=== PATIENT | female | born 1965 | race Caucasian/White ===

== ENCOUNTER 2020-02-14 14:00 | Outpatient (CLI) | payer OTHER, SELFPAY ==
--- NOTE | 2020-02-14 14:06 | MM_ITS ---
WS: [id number] BILATERAL DIGITAL SCREENING MAMMOGRAPHY WITH CAD CLINICAL INFORMATION: SCREENING HISTORY: Screening mammogram. No current complaints. COMPARISON: October 24, 2015 TECHNIQUE: Bilateral CC and MLO views. FINDINGS: The breasts are composed of heterogeneous fibroglandular density tissue, which can limit the detectio n of small underlying mass lesions. No suspicious mass, asymmetry, calcifications, or architectural d istortion. No evidence of malignancy. Punctate calcification left breast. MM/[place] [id number] IMPRESSION: BI-RADS: 2-Benign FOLLOW UP: 1 Year Follow-up Recommend return to annual screening mammography.
== END 2020-02-14 14:01 | disposition home or self-care (01) ==
LOC: RADSHAW 14:04
PROVIDERS: PCP Family Medicine; Visit Provider Family Medicine
DX: Z12.31 Encounter for screening mammogram for malignant neoplasm of breast (principal)
CPT/HCPCS: 77067

== ENCOUNTER 2020-02-23 08:02 | Outpatient (CLI) | payer OTHER, SELFPAY ==
--- NOTE | 2020-02-23 | XR_ITS ---
NOTE: Report was unsigned for reason: Order was edited. Original Signature date and time was: 02/23/20 0847 WS: [id number] HIP WITH PELVIS LEFT TECHNIQUE: 3 views of the left hip with pelvis CLINICAL INFORMATION: PAIN IN LEFT HIP COMPARISON: None. FINDINGS: Mild degenerative arthritis left hip. No acute fractures. HIP WITH PELVIS RIGHT TECHNIQUE: 3 views of the right hip with pelvis CLINICAL INFORMATION: PAIN IN RIGHT HIP COMPARISON: None. FINDINGS: Mild degenerative arthritis right hip. No acute fractures. Pelvic phleboliths. XR/XR hip RT 2-3V wo/w pel* [id number] IMPRESSION: No acute fractures. Mild degenerative arthritis. [facility] BI 3-4V wo/[place] [id number] IMPRESSION: No acute fractures
--- NOTE | 2020-02-23 | XR_ITS ---
WS: [id number] HIP WITH PELVIS RIGHT TECHNIQUE: 3 views of the right hip with pelvis CLINICAL INFORMATION: PAIN IN RIGHT HIP COMPARISON: None. FINDINGS: Mild degenerative arthritis right hip. No acute fractures. Pelvic phleboliths.
== END 2020-02-23 08:03 | disposition home or self-care (01) ==
LOC: RADWPI 08:04
PROVIDERS: Family Provider Family Medicine; PCP Family Medicine; Visit Provider Family Medicine
DX: M25.552 Pain in left hip (principal); M16.11 Unilateral primary osteoarthritis, right hip
CPT/HCPCS: 73502; 73522

== ENCOUNTER 2020-03-29 13:06 | Outpatient (CLI) | payer OTHER, SELFPAY ==
--- NOTE | 2020-03-29 13:00 | XR_ITS ---
WS: [id number] AP standing pelvis, standing right and left hips, AP and frog leg, 03/29/2020 Clinical Data: hip pain Comparison: Bilateral hips, 02/23/2020. Findings: Right hip: There is a prominent acetabular lip. Mild narrowing of the hip joint is seen. There is no erosion or sclerosis. There are no fractures or dislocations. Left hip: There is a prominent acetabular lip. There is minimal narrowing. There are no fractures or dislocatio ns. No erosion or sclerosis seen. AP pelvis: The SI joints and pubic symphysis are normal. There is minimal degenerative change of both hips. Ther e are no fractures or dislocations. The soft tissues are normal. XR/XR hip BI m 5V wo/w pel* [id number] Impression: 1. Mild osteoarthritic change of both hips. 2. Negative pelvis.
== END 2020-03-29 13:07 | disposition home or self-care (01) ==
LOC: RADWPI 13:09
PROVIDERS: Family Provider Family Medicine; PCP Family Medicine; Visit Provider Specialist
DX: M25.551 Pain in right hip (principal); M25.552 Pain in left hip
CPT/HCPCS: 73522; 73523

== ENCOUNTER → 2020-04-05 09:19 | Outpatient (BNVA) | payer OTHER, SELFPAY | PROVIDERS: Family Provider Family Medicine; PCP Family Medicine; Referring Provider Specialist; Visit Provider Anesthesiology Pain Medicine | DX: M25.551 Pain in right hip (principal); M47.816 Spondylosis without myelopathy or radiculopathy, lumbar region; M54.16 Radiculopathy, lumbar region; Z79.891 Long term (current) use of opiate analgesic | CPT/HCPCS: 99205 ==

== ENCOUNTER 2022-11-06 11:39 | Outpatient (CLI) | payer MEDICARE, SELFPAY ==
--- NOTE | 2022-11-06 11:48 | MM_ITS ---
WS: [id number] BILATERAL SCREENING DIGITAL TOMOSYNTHESIS MAMMOGRAM WITH CAD HISTORY: SCREENING COMPARISON: 02/14/2020, 10/24/2015 Bilateral CC and MLO views with tomosynthesis and synthetic mammography submitted. Computer aided det ection analyzed. Breast composition: There are scattered areas of fibroglandular density. No suspicious masses, microc alcifications or architectural distortion. MM/[place] [id number] IMPRESSION: BI-RADS: 1-Negative FOLLOW UP: 1 Year Follow-up
== END 2022-11-06 11:40 | disposition home or self-care (01) ==
LOC: RAD 11:41
PROVIDERS: Family Provider Family Medicine; PCP Family Medicine; Visit Provider Family Medicine
DX: Z12.31 Encounter for screening mammogram for malignant neoplasm of breast (principal)
CPT/HCPCS: 77063; 77067

== ENCOUNTER → 2023-03-06 08:33 | Outpatient (BNVA) | payer MEDICARE, SELFPAY | PROVIDERS: Family Provider Family Medicine; PCP Family Medicine; Visit Provider Internal Medicine Cardiovascular Disease | DX: R00.0 Tachycardia, unspecified (principal); I49.1 Atrial premature depolarization; I49.3 Ventricular premature depolarization | CPT/HCPCS: 93246 ==

== ENCOUNTER → 2024-02-27 09:44 | Outpatient (BNVA) | payer MEDICARE, SELFPAY | PROVIDERS: Family Provider Family Medicine; PCP Family Medicine; Visit Provider Nurse Practitioner | DX: J02.9 Acute pharyngitis, unspecified (principal) | CPT/HCPCS: 87880 ==

== ENCOUNTER → 2024-05-14 08:21 | Outpatient (BNVA) | payer MEDICARE, SELFPAY | PROVIDERS: Family Provider Family Medicine; PCP Family Medicine; Referring Provider Family Medicine; Visit Provider Student in an Organized Health Care Education/Training Program | DX: Z12.11 Encounter for screening for malignant neoplasm of colon (principal) | CPT/HCPCS: 99024; 99204 ==

== ENCOUNTER 2024-05-19 09:20 | Outpatient (CLI) | payer MEDICARE, SELFPAY ==
--- NOTE | 2024-05-19 09:21 | MM_ITS ---
WS: [id number] SCREENING DIGITAL BREAST TOMOSYNTHESIS MAMMOGRAM WITH CAD HISTORY: SCREENING COMPARISON: 11/06/2022, 02/14/2020 Bilateral CC and MLO with tomosynthesis and synthetic mammography submitted. Computer aided detection analyzed. Breast composition: There are scattered areas of fibroglandular density. There is a well-circumscribe d high density round mass in the posterior medial LEFT breast just below the nipple line. Mass is pro bably at the 8-9 o'clock axis close to the nipple. Mass measures 4 x 2 x 5 mm. No additional abnormal ities or distortion. MM/MM [facility] BI tomosynthesis [id number] IMPRESSION: BI-RADS: 0 - Incomplete: Need additional imaging evaluation. FOLLOW UP: Need Additional Imaging Recommendation: LEFT breast ultrasound, limited. LEFT breast just medial to the nipple near 8-9 o'clock.
== END 2024-05-19 09:21 | disposition home or self-care (01) ==
LOC: RAD 09:21
PROVIDERS: Family Provider Family Medicine; PCP Family Medicine; Visit Provider Family Medicine
DX: Z12.31 Encounter for screening mammogram for malignant neoplasm of breast (principal); R92.323 Mammographic fibroglandular density, bilateral breasts; N63.24 Unspecified lump in the left breast, lower inner quadrant
CPT/HCPCS: 77063; 77067

== ENCOUNTER 2024-06-14 08:33 | Outpatient (CLI) | payer MEDICARE, SELFPAY ==
--- NOTE | 2024-06-14 08:36 | US_ITS ---
WS: [id number] ULTRASOUND LEFT BREAST HISTORY: Abnormal mammo COMPARISON: 05/19/2024, 11/06/2022 TECHNIQUE: 2-D and Doppler. Mass seen on mammography corresponds to a benign-appearing lymph node at 9:00 measuring 0.6 x 0.6 x 0 .3 cm. This corresponds in size and location to the mammographic abnormality. No increased vascularit y. Mass is well-circumscribed. US/US breast LT limited* [id number] IMPRESSION: BI-RADS: 2- Benign FOLLOW-UP: 1 Year Follow-up Return to annual screening mammography. Benign lymph node at 9:00 LEFT breast.
== END 2024-06-14 08:34 | disposition home or self-care (01) ==
LOC: RAD 08:34
PROVIDERS: Family Provider Family Medicine; PCP Family Medicine; Visit Provider Family Medicine
DX: R92.8 Other abnormal and inconclusive findings on diagnostic imaging of breast (principal)
CPT/HCPCS: 76642

== ENCOUNTER 2024-06-28 08:28 | Day surgery (SDC) | payer MEDICARE, SELFPAY ==
[2024-06-28 08:48] VITALS: BP 171/95; PULSE 87; RESP 18; TEMP 36.3; O2SAT 96; BMI 33.9
[2024-06-28] MEDS: sodium chloride 0.9% 1,000 ML 30 ML IV (08:57)
[2024-06-28 09:15] LABS: Glucose Point of Care 203 mg/dL (70-110)
--- NOTE | 2024-06-28 09:33 | P.ANESASSM_ITS ---
Pre-Anesthetic Assessment Height/Weight: Height 1.68 m Weight 95.254 kg Temp Pulse Resp BP Pulse Ox O2 Del Method 97.4 F L 87 18 171/95 96 Room Air 06/28/24 08:48 06/28/24 08:48 06/28/24 08:48 06/28/24 08:48 06/28/24 08:48 06/28/24 08:48 Preop Diagnosis: screening Operation Date: 06/28/24 09:45 Proposed Procedures p Colonoscopy 88266, G0121, Z12.11(Not Applicable) - Bryson Crawley MD Familial anesthetic complications: none Was Beta Arleth taken within 24 hours: N/A Was Clonidine taken within 24 hours: N/A Last intake: Intake Last Liquid Date 06/27/24 Last Liquid Time 23:00 Last Solid Date 06/26/24 Last Solid Time 19:00 Social No alcohol and No tobacco Exam alert and oriented x 3 Airway Submandibular: within normal limits Cervical ROM: within normal limits Mallampati: Class II Dentition: full History/ROS No significant history except as noted Pulmonary None reported CV/HEM Hypertension None reported Hepatic None reported GI Gastroesophageal Reflux Disease Metabolic Diabetes Mellitus and Hyperlipidemia [facility] [place] [place] None reported Neuropsych None reported Anesthetic Plan ASA status: 3 Anesthesia: Anesthesia Evaluation and MAC Medications/Allergies Home Medications Medication Instructions Recorded Confirmed Last Taken Type amlodipine 10 mg tablet 10 mg PO DAILY 03/29/20 06/23/24 06/27/24 History hydrochlorothiazide 25 mg tablet 25 mg PO DAILY 03/29/20 06/23/24 06/27/24 History metoprolol tartrate 25 mg tablet 12.5 mg PO BID 03/29/20 06/23/24 06/27/24 Hist ory omeprazole 20 mg capsule,delayed 20 mg PO DAILY PRN Heartburn 03/29/20 06/23/24 06/27/24 History release glimepiride 2 mg tablet 1 mg PO TID 05/14/24 06/23/24 06/27/24 History metformin 500 mg tablet,extended 1,000 mg PO DAILY 05/14/24 06/23/24 06/27/24 History release 24 hr rosuvastatin 10 mg tablet 10 mg PO DAILY 05/14/24 06/23/24 06/27/24 History Allergies Allergy/AdvReac Type Severity Reaction Status Date / Time codeine Allergy hives Verified 06/23/24 11:35 Current Medications Generic Name Dose Route Start Last Admin Trade Name Albert PRN Reason Stop Dose Admin Sodium Chloride 1,000 mls @ 30 mls/hr 06/28/24 08:45 06/28/24 08:57 Sodium Chloride 0.9% IV 30 mls/hr .Q24H DON Administration PFSH Anesthesia Medical History Accelerated essential hypertension Acid reflux Family History Other Cancer Hypertension Social History Smoking and tobacco/nicotine status: unknown if used tobacco/nicotine Alcohol intake: never Substance/Drug Use: never Data Anesthesia Cardiac Studies: Holter Monitor 03/06/23
--- NOTE | 2024-06-28 09:45 | W.PM.OPSFHP ---
Same Day Surgery H&P Indication for Procedure/HPI DATE OF PROCEDURE: June 28, 2024 CHIEF COMPLAINT/INDICATIONFOR SURGICAL PROCEDURE: screening colonoscopy PREOP DIAGNOSIS: screening PLANNED PROCEDURE: Operation Date: 06/28/24 09:45 Proposed Procedures p Colonoscopy 52536, G0121, Z12.11(Not Applicable) - Bryson Crawley MD Medications/Allergies* Home Medications Medication Instructions Recorded Confirmed Type amlodipine 10 mg tablet 10 mg PO DAILY 03/29/20 06/23/24 History hydrochlorothiazide 25 mg tablet 25 mg PO DAILY 03/29/20 06/23/24 History metoprolol tartrate 25 mg tablet 12.5 mg PO BID 03/29/20 06/23/24 History omeprazole 20 mg capsule,delayed 20 mg PO DAILY PRN Heartburn 03/29/20 06/23/24 History release glimepiride 2 mg tablet 1 mg PO TID 05/14/24 06/23/24 History metformin 500 mg tablet,extended 1,000 mg PO DAILY 05/14/24 06/23/24 History release 24 hr rosuvastatin 10 mg tablet 10 mg PO DAILY 05/14/24 06/23/24 History Allergies/Adverse Reactions Allergy/AdvReac Type Severity Reaction Status Date / Time codeine Allergy hives Verified 06/23/24 11:35 Current Medications: Generic Name Dose Route Start Last Admin Trade Name Freq PRN Reason Stop Dose Admin Sodium Chloride 1,000 mls @ 30 mls/hr 06/28/24 08:45 06/28/24 08:57 Sodium Chloride 0.9% IV 30 mls/hr .Q24H DON Administration Pertinent History/Comorbid Conditions* Medical History (Updated 03/31/20 @ 13:41 by Ernestine Reilly MD) Accelerated essential hypertension Acid reflux Family History (Updated 04/05/20 @ 10:29 by Yue Randhawa RN) Cancer Hypertension Social History Smoking and tobacco/nicotine status: unknown if used tobacco/nicotine Alcohol intake: never Substance/Drug Use: never Pertinent Exam Findings alert, oriented x 3, clear to auscultation bilaterally, regular rate & rhythm and procedure specific exam findings Abdomen soft, nt, nd Recommendations Surgery/Procedure today Coding Level of Care Code Acute Code for Chg Fwd
[2024-06-28 10:08] VITALS: BP 143/81; PULSE 80; RESP 18; TEMP 36.2; O2SAT 89
[2024-06-28 10:13] VITALS: BP 142/89; PULSE 80; RESP 18; O2SAT 92
[2024-06-28 10:23] VITALS: BP 138/87; PULSE 78; RESP 20; O2SAT 91
--- NOTE | 2024-06-28 10:24 | ANE.PACU2 ---
Inpatient post-anesthesia follow up: Airway intact: Yes Vital signs: Temperature 97.2 F Pulse Rate 78 Respiratory Rate 20 Blood Pressure 138/87 Pulse Oximetry 91 Oxygen Delivery Me thod Room Air Oxygen Flow Rate 4 Fraction of Inspir ed Oxygen Hydration adequate: Yes Nausea and vomiting: No Pain level: 1 Mental status: Baseline
== END 2024-06-28 10:56 | disposition home or self-care (01) ==
PROVIDERS: Family Provider Family Medicine; PCP Family Medicine; Visit Provider Student in an Organized Health Care Education/Training Program
PROC: 0DJD8ZZ Inspection of Lower Intestinal Tract, Via Natural or Artificial Opening Endoscopic (ICD-10-PCS; CPT 45378; principal; 2024-06-28 09:45)
DX: Z12.11 Encounter for screening for malignant neoplasm of colon (principal); K57.30 Diverticulosis of large intestine without perforation or abscess without bleeding; I10 Essential (primary) hypertension; K21.9 Gastro-esophageal reflux disease without esophagitis; E11.9 Type 2 diabetes mellitus without complications; E78.5 Hyperlipidemia, unspecified
CPT/HCPCS: 36416; 82962; G0121; J2704; J7030

== ENCOUNTER → 2025-03-24 08:25 | Outpatient (BNVA) | payer MEDICARE, SELFPAY | PROVIDERS: PCP Family Medicine; Visit Provider Nurse Practitioner | DX: M16.11 Unilateral primary osteoarthritis, right hip (principal); M54.50 Low back pain, unspecified | CPT/HCPCS: 73502; 99204 ==

== ENCOUNTER → 2025-04-25 09:31 | Outpatient (BNVA) | payer MEDICARE, SELFPAY | PROVIDERS: PCP Family Medicine; Visit Provider Nurse Practitioner | DX: M16.11 Unilateral primary osteoarthritis, right hip (principal); M54.50 Low back pain, unspecified | CPT/HCPCS: 99213 ==

== ENCOUNTER 2025-06-10 07:58 | Outpatient (CLI) | payer MEDICARE, SELFPAY ==
--- NOTE | 2025-06-10 | MM_ITS ---
WS: [id number] SCREENING DIGITAL BREAST TOMOSYNTHESIS MAMMOGRAM WITH CAD HISTORY: ANNUAL SCREENING COMPARISON: 05/19/2024, 11/06/2022, 02/14/2020 Bilateral CC and MLO with tomosynthesis and synthetic mammography submitted. Computer aided detection analyzed. Breast composition: There are scattered areas of fibroglandular density. Focal asymmetry and distortion measuring 10 x 6 mm seen only on the RIGHT MLO projection in the upper outer quadrant. Asymmetry is not identified on the CC projection. The LEFT breast is negative. No suspicious mass or grouping of calcifications. MM/MM [facility] tomosynthesis [id number] IMPRESSION: BI-RADS: 0 - Incomplete: Need additional imaging evaluation. FOLLOW UP: Need Additional Imaging RIGHT breast: Exaggerated lateral RIGHT cc. Spot compression views ( MLO). Nnamdi tional spot compression view in the exaggerated lateral RIGHT cc also. True ML. Ultrasound to follow if abnormality persists.
== END 2025-06-10 07:59 | disposition home or self-care (01) ==
PROVIDERS: PCP Family Medicine; Visit Provider Family Medicine
DX: Z12.31 Encounter for screening mammogram for malignant neoplasm of breast (principal); R92.323 Mammographic fibroglandular density, bilateral breasts; R92.8 Other abnormal and inconclusive findings on diagnostic imaging of breast
CPT/HCPCS: 77063; 77067

== ENCOUNTER 2025-07-05 11:22 | Outpatient (CLI) | payer MEDICARE, SELFPAY ==
--- NOTE | 2025-07-05 11:32 | MM_ITS ---
WS: [id number] ADDITIONAL VIEWS RIGHT MAMMOGRAM WITH DIGITAL BREAST TOMOSYNTHESIS. RIGHT BREAST ULTRASOUND HISTORY: ABNORMAL MAMMO COMPARISON: 06/10/2025, 05/19/2024, 02/14/2020 RIGHT MAMMOGRAM: Spot compression views and true ML with digital breast tomosynthesis and SM. Breast composition: There are scattered areas of fibroglandular density. The asymmetry persists in the upper outer quadrant. Asymmetry is less pronounced but there is been a progression since prior exams. There is no mass or distortion. RIGHT BREAST ULTRASOUND 2-D and color Doppler imaging submitted. Ultrasound directed to the upper outer quadrant of the RIGHT breast.. Dense fibroglandular tissue identified. There are a few small cysts clustered together at 9:00, 2 cm from the nipple. The entire cluster measures 0.5 x 0.6 x 0.6 cm. There is no shadowing or distortion. MM/MM diag RT tomosynthesis [id number] IMPRESSION: BI-RADS: 3 - Probably Benign. FOLLOW UP: 6 Month Follow-up Recommend diagnostic RIGHT mammogram follow-up in 6 months and possible ultraso und. Note discrete abnormality was noted on the mammogram or ultrasound but inc reasing asymmetry is present in the upper outer quadrant of the RIGHT breast ov er several prior years. Recommend 6-month follow-up to ensure no progression.
== END 2025-07-05 11:23 | disposition home or self-care (01) ==
LOC: RAD 11:22
PROVIDERS: PCP Family Medicine; Visit Provider Family Medicine
DX: R92.321 Mammographic fibroglandular density, right breast (principal); N64.89 Other specified disorders of breast; R92.8 Other abnormal and inconclusive findings on diagnostic imaging of breast; N60.11 Diffuse cystic mastopathy of right breast
CPT/HCPCS: 76642; 77061; G0279